=== PATIENT | female | born 1960 | race Caucasian/White ===

== ENCOUNTER 2018-03-16 18:25 | Emergency (ER) | payer BC ==
[~2018-03-16] VITALS: Ht 167.6 cm; Wt 96.6 kg
[~2018-03-16 18:25] MED LIST: ALBU90OI INH; ALBU90OI6; AMOCLA875 PO; AMOX500 PO; ASPI325 PO; ASPI81CH PO; ATOR40TA PO; AZIT250 PO; CALCAVITDA PO; CIPRO500 MG PO; CLOP75 PO; CODGUAEL PO; CYCL10 PO; Cheratussin AC118 ML PO; DIAZ5 PO; DULO60; DULO60 PO; FLUO20; FLUT220OIA INH; GABA300 PO; GLIP10; GLIP5 PO; HYDACE10B; HYDGUAL120 PO; LEVFLO500 PO; LIRA0.6P; LISI10; LORA1 PO; METF500 PO; METF500C; METPRE4DP PO; MULVITMINF PO; OMEP20ER PO; PIOG15; PIOG30 PO; POTASSIUM GLUC500 MG PO; PRAV20 PO; PRED20 PO; Prozac20 MG PO; Pyridium200 MG PO; SPACE CHAMBER1 EACH MC; VITNEPH PO
[2018-03-16 19:44] LABS: BASOPHILS ABSOLUTE AUTO 0.07 K/mm3 (0.00-0.23); BASOPHILS PERCENT AUTO 1 % (0-2); EOSINOPHILS ABSOLUTE AUTO 0.27 K/mm3 (0.00-0.68); EOSINOPHILS PERCENT AUTO 3 % (0-6); Hematocrit 38.7 % (33.0-51.0); Hemoglobin 13.3 g/dL (11.5-16.0); IMMATURE GRAN ABSOLUTE AUTO 0.03 K/mm3 (0.00-0.10); IMMATURE GRAN PERCENT AUTO 0 % (0-1); LYMPHOCYTES ABSOLUTE AUTO 2.57 K/mm3 (0.84-5.20); LYMPHOCYTES PERCENT AUTO 27 % (21-46); MONOCYTES ABSOLUTE AUTO 0.78 K/mm3 (0.16-1.47); MONOCYTES PERCENT AUTO 8 % (4-13); Mean Corpuscular HGB 28.9 pg (26.0-34.0); Mean Corpuscular HGB Conc 34.4 g/dL (31.5-36.5); Mean Corpuscular Volume 84 fL (80-100); Mean Platelet Volume 11.4 fL (9.1-12.4); NEUTROPHILS ABSOLUTE AUTO 5.67 K/mm3 (1.96-9.15); NEUTROPHILS PERCENT AUTO 60 % (41-73); Platelet Count 251 K/mm3 (150-400); RDW Coefficient Variation 12.5 % (11.7-14.2); White Blood Cell Count 9.39 K/mm3 (4.00-11.30)
[2018-03-16 19:45] LABS: Source, Urine Clean Catch
[2018-03-16 19:58] LABS: Appearance, Urine Clear (Clear); Bilirubin, Urine Neg (Neg); Blood, Urine 2+ (Neg); Color, Urine Yellow (P-Yellow); Glucose Qualitative, Urine 4+ (Neg); Ketones, Urine Neg (Neg); Leukocyte Esterase, Urine 3+ (Neg); Nitrite, Urine Neg (Neg); Protein, Urine 3+ (Neg); Specific Gravity, Urine 1.015 (1.003-1.022); Urobilinogen, Urine NORM (Normal)
[2018-03-16 20:03] LABS: Alanine Aminotransfer (ALT/SGP 19 U/L (12-78); Albumin/Globulin Ratio 0.8 (0.8-1.8); Alk Phos 91 U/L (50-136); Anion Gap 10 mmol/L (6-16); Aspartate Aminotrans (AST/SGOT 15 U/L (12-37); Bilirubin, Total 0.2 mg/dL (0.1-1.0); Blood Urea Nitrogen 21 mg/dL (8-24); CO2, Blood 25 mmol/L (21-32); Calcium, Blood 8.7 mg/dL (8.5-10.1); Chloride, Blood 95 mmol/L (98-108); Creatinine, Blood 0.72 mg/dL (0.40-1.00); Globulin, Blood 3.9 g/dL (2.2-4.0); Glomerular Filtration Rate >60 (60-); Glucose, Blood 473 mg/dL (70-99); Potassium, Blood 4.1 mmol/L (3.5-5.5); Sodium, Blood 130 mmol/L (136-145); Total Protein, Blood 6.9 g/dL (6.4-8.2)
[2018-03-16 20:06] LABS: Bacteria Few /hpf; Red Blood Cells, Urine 0-2 /hpf (0-2); Squamous Epithelial Cells Mod /hpf (Few)
[2018-03-17] MEDS ORDERED: METF500C PO (01:59)
[2018-03-17] MEDS ORDERED: Bactrim Ds Tab1 EACH PO (01:59)
[2018-03-17] MEDS ORDERED: CEPH500 PO (01:59)
== END 2018-03-17 02:52 | disposition home or self-care (01) ==
LOC: ER 18:25
PROVIDERS: Emergency Medicine
DX: L02.214 Cutaneous abscess of groin (principal); E11.65 Type 2 diabetes mellitus with hyperglycemia; E72.51 Non-ketotic hyperglycinemia; Z91.018 Allergy to other foods; Z79.899 Other long term (current) drug therapy
CPT/HCPCS: 10060; 36415; 80053; 81001; 82947; 85025; 87070; 87075; 87077; 87086; 87147; 87186; 87205; 96365; 96366; 99283-25; J1815; J3370; J7030; J7050

== ENCOUNTER → 2018-10-14 | Outpatient (CLI) | payer BC ==
[~2018-10-14] MED LIST changes: +Bactrim Ds Tab1 EACH PO; +CEPH500 PO; +METF500C PO
[2018-10-14 12:32] LABS: BASOPHILS ABSOLUTE AUTO 0.06 K/mm3 (0.00-0.23); BASOPHILS PERCENT AUTO 1 % (0-2); EOSINOPHILS ABSOLUTE AUTO 0.14 K/mm3 (0.00-0.68); EOSINOPHILS PERCENT AUTO 3 % (0-6); Hematocrit 39.4 % (33.0-51.0); Hemoglobin 12.8 g/dL (11.5-16.0); IMMATURE GRAN ABSOLUTE AUTO 0.02 K/mm3 (0.00-0.10); IMMATURE GRAN PERCENT AUTO 0 % (0-1); LYMPHOCYTES ABSOLUTE AUTO 1.19 K/mm3 (0.84-5.20); LYMPHOCYTES PERCENT AUTO 23 % (21-46); MONOCYTES ABSOLUTE AUTO 0.61 K/mm3 (0.16-1.47); MONOCYTES PERCENT AUTO 12 % (4-13); Mean Corpuscular HGB 28.3 pg (26.0-34.0); Mean Corpuscular HGB Conc 32.5 g/dL (31.5-36.5); Mean Corpuscular Volume 87 fL (80-100); Mean Platelet Volume 11.1 fL (9.1-12.4); NEUTROPHILS ABSOLUTE AUTO 3.26 K/mm3 (1.96-9.15); NEUTROPHILS PERCENT AUTO 62 % (41-73); Platelet Count 266 K/mm3 (150-400); RDW Standard Deviation 40.9 fL (35.1-46.3); Red Blood Cell Count 4.53 M/mm3 (3.80-5.20); White Blood Cell Count 5.28 K/mm3 (4.00-11.30)
[2018-10-14 12:45] LABS: Alanine Aminotransfer (ALT/SGP 25 U/L (12-78); Albumin/Globulin Ratio 0.8 (0.8-1.8); Alk Phos 67 U/L (50-136); Anion Gap 6 mmol/L (6-16); Aspartate Aminotrans (AST/SGOT 18 U/L (12-37); Bilirubin, Total 0.2 mg/dL (0.1-1.0); Blood Urea Nitrogen 13 mg/dL (8-24); Bun/Creatinine Ratio 23.9 (12.0-20.0); CHOL/HDL RATIO 3.1; CO2, Blood 28 mmol/L (21-32); Calcium, Blood 8.4 mg/dL (8.5-10.1); Chloride, Blood 105 mmol/L (98-108); Cholesterol 186 mg/dL (50-200); Creatinine, Blood 0.54 mg/dL (0.40-1.00); Globulin, Blood 3.8 g/dL (2.2-4.0); Glomerular Filtration Rate >60 (60-); Glucose, Blood 85 mg/dL (70-99); HDL Cholesterol 60 mg/dL (>39); LDL/HDL RATIO 1.7; Low Density Lipoprotein Chol 105 mg/dL (0-110); Potassium, Blood 4.2 mmol/L (3.5-5.5); Sodium, Blood 139 mmol/L (136-145); Total Protein, Blood 6.8 g/dL (6.4-8.2); Triglycerides 107 mg/dL (30-160); Very Low Density Lipoprot Chol 21 mg/dL (6-32)
[2018-10-14 15:58] LABS: Creatinine, Urine Random 37.8 mg/dL (27.00-270.00)
[2018-10-14 16:25] LABS: Microalb/Creat Ratio UR, Rand 3068.78 mg/g (0.000-30.000)
== END | disposition home or self-care (01) ==
LOC: LAB 11:59 → LAB SHORT 11:59
PROVIDERS: Nurse Practitioner Family
DX: Z13.29 Encounter for screening for other suspected endocrine disorder (principal); E11.29 Type 2 diabetes mellitus with other diabetic kidney complication
CPT/HCPCS: 80053; 80061; 82043; 82570; 83036; 84443; 85025

== ENCOUNTER 2018-12-08 06:40 | Day surgery (SDC) | payer BC ==
[~2018-12-08] VITALS: Ht 165.1 cm; Wt 93.0 kg
[~2018-12-08 06:40] MED LIST changes: +INSULANPEN SC; +Lisinopril2.5 MG PO; +METFORMIN HCL1000 MG PO
--- NOTE | 2018-12-08 12:00 | NUR ---
PT UP TO THE BATHROOM /C SBA. TOLERATED WELL. -BLEEDING OR SWELLING R GROIN AREA.
--- NOTE | 2018-12-08 12:59 | NUR ---
PT VERBALIZED UNDERSTANDING OF WRITTEN AND VERBAL D/C INST. IV REMOVED. PT TAKEN OUT OF THE HRT CENTER VIA W/C.
== END 2018-12-08 22:50 | disposition home or self-care (01) ==
LOC: MHTC 06:40
DX: I73.9 Peripheral vascular disease, unspecified (principal); E11.9 Type 2 diabetes mellitus without complications; J45.909 Unspecified asthma, uncomplicated; G47.30 Sleep apnea, unspecified; Z79.899 Other long term (current) drug therapy; Z79.4 Long term (current) use of insulin; Z91.018 Allergy to other foods
CPT/HCPCS: 82947; 99152; 99153; C1714; C1760; C1769; C1876; C1884; C1887; C1894; C2623; J1200; J1644; J2250; J2720; J3010; J7030; J7040; J7042; Q9967

== ENCOUNTER 2019-01-13 08:49 | Day surgery (SDC) | payer BC, OTHER ==
[~2019-01-13] VITALS: Ht 165.1 cm; Wt 93.0 kg
[2019-01-13] MEDS ORDERED: CLOP75 PO (09:21)
--- NOTE | 2019-01-13 11:50 | NUR ---
PT RETURN TO RECOVERY, LETHARGIC. SLEEPS IF LEFT UNDISTURBED. NO C/O PAIN OR DISCOMFORT TO GROIN WHEN AWAKENED. LEFT GROIN SITE STABLE. NO BLEEDING OR SWELLING NOTED. NO HEMATOMA PALPATED. LEGS PINK WARM AND DRY.
--- NOTE | 2019-01-13 13:54 | NUR ---
PT HAS HAD UNEVENTFUL POST PROCEDURE COURSE. RESTING IN BED - FLAT. WATCHING TV AT THIS TIME. HAS EATEN AND DRANK WITHOUT NAUSEA OR VOMITING. NO C/O PAIN OR DISCOMFORT. LEFT GROIN SITE REMAINS STABLE AND NO BLEEDING ORSWELLING NOTED. LEGS PINK, WARM, AND DRY. PT HAS NO C/O AT THIS TIME.
--- NOTE | 2019-01-13 14:50 | NUR ---
PT AMBULATED TO BATHROOM AND BACK AT 3 HOUR LAMONT. GROIN REMAINS STABLE. NO BLEEDING OR SWELLING NOTED. NO HEMATOMA. PT STATES SOME ANKLE DISCOMFORT POST PROCEDURE AND "PROBABLY FROM THE IMPROVED BLOOD FLOW." ASSESSMENT REVEALS NO OTHER ISSUES. REVIEWED DISCHARGE INSTRUCTIONS WITH PATIENT WHO VERBALIZES UNDERSTANDING OF ALL INSTRUCTIONS GIVEN.
--- NOTE | 2019-01-13 15:20 | NUR ---
PT IV D/C AT 1500. TIP INTACT. PT DRESSED SELF WITHOUT ASSISTANCE. GROIN REMAINED STABLE AFTER ALL ACTIVITY. PT D/C HOME VIA W/C WITH FRIEND TO DRIVE HER AT 1510
== END 2019-01-13 15:10 | disposition home or self-care (01) ==
LOC: MHTC 08:49
DX: I73.9 Peripheral vascular disease, unspecified (principal)
CPT/HCPCS: 82947; 99152; 99153; C1725; C1760; C1769; C1876; C1887; C1894; C2623; J1644; J2250; J3010; J7030; Q9967

== ENCOUNTER → 2020-07-26 | Outpatient (CLI) | payer BC | LOC: LAB 09:46 | DX: R19.7 Diarrhea, unspecified (principal) | CPT/HCPCS: 87015; 87045; 87046; 87205; 87899 ==

== ENCOUNTER 2024-09-06 16:05 | Emergency (ER) | payer MEDICARE, OTHER ==
[~2024-09-06] VITALS: Ht 167.6 cm; Wt 88.9 kg
[2024-09-06 16:38] LABS: BASOPHILS ABSOLUTE AUTO 0.07 K/mm3 (0.00-0.23); BASOPHILS PERCENT AUTO 1 % (0-2); EOSINOPHILS ABSOLUTE AUTO 0.27 K/mm3 (0.00-0.68); EOSINOPHILS PERCENT AUTO 3 % (0-6); Hematocrit 42.5 % (33.0-51.0); Hemoglobin 14.1 g/dL (11.5-16.0); IMMATURE GRAN ABSOLUTE AUTO 0.02 K/mm3 (0.00-0.10); IMMATURE GRAN PERCENT AUTO 0 % (0-1); LYMPHOCYTES ABSOLUTE AUTO 2.11 K/mm3 (0.84-5.20); LYMPHOCYTES PERCENT AUTO 20 % (21-46); MONOCYTES ABSOLUTE AUTO 0.85 K/mm3 (0.16-1.47); MONOCYTES PERCENT AUTO 8 % (4-13); Mean Corpuscular HGB 29.1 pg (26.0-34.0); Mean Corpuscular HGB Conc 33.2 g/dL (31.5-36.5); Mean Corpuscular Volume 88 fL (80-100); Mean Platelet Volume 11.3 fL (9.1-12.4); NEUTROPHILS ABSOLUTE AUTO 7.34 K/mm3 (1.96-9.15); NEUTROPHILS PERCENT AUTO 69 % (41-73); Platelet Count 286 K/mm3 (150-400); RDW Coefficient Variation 13.6 % (11.7-14.2); RDW Standard Deviation 43.9 fL (35.1-46.3); Red Blood Cell Count 4.85 M/mm3 (3.80-5.20); White Blood Cell Count 10.66 K/mm3 (4.00-11.30)
[2024-09-06 17:04] LABS: Albumin, Blood 3.3 g/dL (3.4-5.0); Albumin/Globulin Ratio 0.7 (0.8-1.8); Bilirubin, Total 0.3 mg/dL (0.1-1.0); Bun/Creatinine Ratio 37.9 (12.0-20.0); Calcium, Blood 9.6 mg/dL (8.5-10.1); Creatinine, Blood 0.87 mg/dL (0.40-1.00); Globulin, Blood 4.8 g/dL (2.2-4.0); Potassium, Blood 4.7 mmol/L (3.5-5.5); Total Protein, Blood 8.1 g/dL (6.4-8.2)
[2024-09-06] MEDS ORDERED: FUROSEMIDE40 MG PO (19:17)
[2024-09-06] MEDS ORDERED: PROZAC2010 PO (19:17)
[2024-09-06] MEDS ORDERED: Robaxin750 MG PO (19:17)
[2024-09-06] MEDS ORDERED: LEVE500 PO (19:19)
[2024-09-06] MEDS ORDERED: METOPROLOL TART25 MG PO (19:19)
[2024-09-06] MEDS ORDERED: B-COMPLEX WITH1 EAC2 PO (19:20)
[2024-09-06] MEDS ORDERED: B COMPLEX-VITA1 EACH PO (19:21)
[2024-09-06] MEDS ORDERED: MELA3 PO (19:21)
[2024-09-06] MEDS ORDERED: BASAGLAR K100 UNIT/3 SC (19:22)
[2024-09-06] MEDS ORDERED: Potassium Chlo20 ME1 PO (19:23)
[2024-09-06] MEDS ORDERED: INSULIN AS100 UNIT/8 SC (19:23)
[2024-09-06 19:30] VITALS: BP 146/78
[2024-09-06] MEDS ORDERED: Morphine Sulfate 4 MG/1 ML Injection IV ONE ×2 (20:10→21:50)
[2024-09-06] MEDS ORDERED: ACET500 PO (22:23)
[2024-09-06] MEDS ORDERED: DOXY100 PO (22:23)
== END 2024-09-06 22:45 | disposition home or self-care (01) ==
LOC: ER 16:05
PROVIDERS: Student in an Organized Health Care Education/Training Program
DX: I73.9 Peripheral vascular disease, unspecified (principal); I77.1 Stricture of artery; F17.210 Nicotine dependence, cigarettes, uncomplicated; E11.9 Type 2 diabetes mellitus without complications; J44.9 Chronic obstructive pulmonary disease, unspecified; Z79.4 Long term (current) use of insulin; Z79.82 Long term (current) use of aspirin; Z91.018 Allergy to other foods
CPT/HCPCS: 80053; 83605; 85025; 93926; 96374; 96376; 99284-25; J2270

== ENCOUNTER 2024-09-07 19:18 | Inpatient (IN) | payer MEDICARE, OTHER ==
[~2024-09-07] VITALS: Ht 165.1 cm; Wt 89.5 kg
[~2024-09-07 19:18] MED LIST changes: +ACET500 PO; +B COMPLEX-VITA1 EACH PO; +B-COMPLEX WITH1 EAC2 PO; +BASAGLAR K100 UNIT/3 SC; +DOXY100 PO; +FUROSEMIDE40 MG PO; +INSULIN AS100 UNIT/8 SC; +LEVE500 PO; +MELA3 PO; +METOPROLOL TART25 MG PO; +PROZAC2010 PO; +Potassium Chlo20 ME1 PO; +Robaxin750 MG PO
[2024-09-07 20:18] LABS: BASOPHILS ABSOLUTE AUTO 0.08 K/mm3 (0.00-0.23); BASOPHILS PERCENT AUTO 1 % (0-2); EOSINOPHILS ABSOLUTE AUTO 0.22 K/mm3 (0.00-0.68); EOSINOPHILS PERCENT AUTO 2 % (0-6); Hematocrit 41.4 % (33.0-51.0); Hemoglobin 13.5 g/dL (11.5-16.0); IMMATURE GRAN ABSOLUTE AUTO 0.04 K/mm3 (0.00-0.10); IMMATURE GRAN PERCENT AUTO 0 % (0-1); LYMPHOCYTES ABSOLUTE AUTO 2.13 K/mm3 (0.84-5.20); LYMPHOCYTES PERCENT AUTO 19 % (21-46); MONOCYTES ABSOLUTE AUTO 1.04 K/mm3 (0.16-1.47); MONOCYTES PERCENT AUTO 9 % (4-13); Mean Corpuscular HGB 28.8 pg (26.0-34.0); Mean Corpuscular HGB Conc 32.6 g/dL (31.5-36.5); Mean Corpuscular Volume 88 fL (80-100); Mean Platelet Volume 10.9 fL (9.1-12.4); NEUTROPHILS ABSOLUTE AUTO 7.61 K/mm3 (1.96-9.15); NEUTROPHILS PERCENT AUTO 68 % (41-73); Platelet Count 305 K/mm3 (150-400); RDW Coefficient Variation 13.5 % (11.7-14.2); RDW Standard Deviation 43.7 fL (35.1-46.3); Red Blood Cell Count 4.69 M/mm3 (3.80-5.20); White Blood Cell Count 11.12 K/mm3 (4.00-11.30)
[2024-09-07 20:33] LABS: Albumin, Blood 3.2 g/dL (3.4-5.0); Albumin/Globulin Ratio 0.7 (0.8-1.8); Bilirubin, Total 0.3 mg/dL (0.1-1.0); Bun/Creatinine Ratio 30.9 (12.0-20.0); Calcium, Blood 9.4 mg/dL (8.5-10.1); Creatinine, Blood 1.1 mg/dL (0.40-1.00); Globulin, Blood 4.7 g/dL (2.2-4.0); Potassium, Blood 5.1 mmol/L (3.5-5.5); Total Protein, Blood 7.9 g/dL (6.4-8.2)
[2024-09-07] MEDS ORDERED: FentaNYL Citrate 50 MCG/ML 2 ML Injection IV ONE (22:25)
[2024-09-07] MEDS ORDERED: FLU VACC TS2024-25(6MOS UP)/PF 45 MCG/0.5 ML SYRINGE IM ONE (23:10)
[2024-09-07] MEDS ORDERED: Naloxone HCl 0.4MG / ML 1ML Vial IV PRN (23:15)
[2024-09-07] MEDS ORDERED: FentaNYL Citrate 50 MCG/ML 2 ML Injection IV PRN (23:15)
[2024-09-07] MEDS ORDERED: Acetaminophen 325 MG TABLET PO PRN (23:20)
[2024-09-07] MEDS ORDERED: Melatonin 3 MG Tab PO PRN (23:20)
[2024-09-07] MEDS ORDERED: Methocarbamol 500 MG Tab PO PRN (23:25)
[2024-09-07 23:48] LABS: Anti-Xa UFH, PHA Monitoring <0.10 IU/mL; International Normalized Ratio 0.95; Prothrombin Time Results 10.2 Sec (9.7-11.5)
[2024-09-08] VITALS (27 sets, daily range): BP systolic 105–179; BP diastolic 45–104
[2024-09-08] MEDS ORDERED: Lactated Ringer's 1,000 ML IV SCH
[2024-09-08] MEDS ORDERED: Heparin Sodium,Porcine/0.5 NS 500 ML IV SCH (00:50)
--- NOTE | 2024-09-08 02:30 | NUR ---
NEW ADMIT. PATIENT ADMITTED TO ROOM 337 FROM THE ER. PATIENT ARRIVED TO ROOM VIA GURNEY AND 1 PERSON TRANSPORT. PATIENT ARRIVED IN STREET CLOTHES WITH HEPARIN DRIP RUNNING. PATIENT ABLE TO TRANSFER OVER TO HOSPITAL BED FROM [facility] BY [facility]. PATIENT ARRIVED TO ROOM WITH HER PERSONAL PURSE. PATIENT ORIENTED TO ROOM. THIS RN TO ASSUME CARE OF PATIENT.
--- NOTE | 2024-09-08 04:04 | NUR ---
SHIFT SUMMARY. PATIENT IS A&OX4. PATIENT IS WHEELCHAIR AT BASELINE. PATIENT CALLS APPROPRIATELY AND IS ABLE TO MAKE HER NEEDS KNOWN. PAITNET IS NPO FOR ANGIOPLASTY TO BE DONE 09/08/23, IR TO CONSULT THIS MORNING. PATIENT HAS SCABS TO LLE WITH REDNESS AND 2-3RD DIGITS ARE DISCOLORED PURPLE. PATIENT HAS NO TEETH-HAS DENTURES BUT IS NOT WEARING THEM D/T THEM BEING BROKEN AT THIS TIME. BED IS LOCKED IN THE LOWEST POSITION WTIH CALL LIGHT IN REACH. CARE IS ONGOING.
[2024-09-08 08:16] LABS: BASOPHILS ABSOLUTE AUTO 0.05 K/mm3 (0.00-0.23); BASOPHILS PERCENT AUTO 1 % (0-2); EOSINOPHILS ABSOLUTE AUTO 0.21 K/mm3 (0.00-0.68); EOSINOPHILS PERCENT AUTO 2 % (0-6); Hematocrit 37.6 % (33.0-51.0); Hemoglobin 12.5 g/dL (11.5-16.0); IMMATURE GRAN ABSOLUTE AUTO 0.05 K/mm3 (0.00-0.10); IMMATURE GRAN PERCENT AUTO 1 % (0-1); LYMPHOCYTES ABSOLUTE AUTO 1.64 K/mm3 (0.84-5.20); LYMPHOCYTES PERCENT AUTO 17 % (21-46); MONOCYTES ABSOLUTE AUTO 0.82 K/mm3 (0.16-1.47); MONOCYTES PERCENT AUTO 8 % (4-13); Mean Corpuscular HGB 28.9 pg (26.0-34.0); Mean Corpuscular HGB Conc 33.2 g/dL (31.5-36.5); Mean Corpuscular Volume 87 fL (80-100); Mean Platelet Volume 11.1 fL (9.1-12.4); NEUTROPHILS ABSOLUTE AUTO 6.98 K/mm3 (1.96-9.15); NEUTROPHILS PERCENT AUTO 72 % (41-73); Platelet Count 281 K/mm3 (150-400); RDW Coefficient Variation 13.4 % (11.7-14.2); Red Blood Cell Count 4.32 M/mm3 (3.80-5.20); White Blood Cell Count 9.75 K/mm3 (4.00-11.30)
[2024-09-08 08:28] LABS: Albumin, Blood 2.9 g/dL (3.4-5.0); Albumin/Globulin Ratio 0.7 (0.8-1.8); Bilirubin, Total 0.3 mg/dL (0.1-1.0); Bun/Creatinine Ratio 33.2 (12.0-20.0); Calcium, Blood 9.1 mg/dL (8.5-10.1); Creatinine, Blood 0.93 mg/dL (0.40-1.00); Globulin, Blood 4.3 g/dL (2.2-4.0); Magnesium, Blood 2.3 mg/dL (1.6-2.4); Potassium, Blood 4.2 mmol/L (3.5-5.5); Total Protein, Blood 7.2 g/dL (6.4-8.2)
[2024-09-08] MEDS ORDERED: Furosemide 40 MG Tab PO SCH (09:00)
[2024-09-08] MEDS ORDERED: Atorvastatin 40 MG Tab PO SCH (09:00)
[2024-09-08] MEDS ORDERED: LevETIRAcetam 500 MG Tab PO SCH (09:00)
[2024-09-08] MEDS ORDERED: Aspirin 81 MG Chew PO SCH (09:00)
[2024-09-08] MEDS ORDERED: Metoprolol Tartrate 25 MG Tab PO SCH (09:00)
[2024-09-08] MEDS ORDERED: FLUoxetine HCL 20 MG CAP PO SCH (09:00)
[2024-09-08] MEDS ORDERED: Lisinopril 10 MG Tab PO SCH (09:00)
[2024-09-08] MEDS ORDERED: Potassium Chloride 20 MEQ TabCR PO SCH (09:00)
[2024-09-08] MEDS ORDERED: Dose Adjust by Pharmacy XX STA (09:56)
[2024-09-08] MEDS ORDERED: NS 250 ML IV ONE (10:17)
[2024-09-08] MEDS ORDERED: Heparin Sodium 1000 Units/ML 10ML MDV ONE ×2 (10:17→10:23)
[2024-09-08] MEDS ORDERED: NS 1,000 ML IV ONE ×2 (10:17→10:23)
[2024-09-08] MEDS ORDERED: NS 100 ML IV ONE ×2 (10:17→12:43)
[2024-09-08] MEDS ORDERED: Midazolam HCl 1MG / ML 2ML Vial ONE ×2 (10:22→12:20)
[2024-09-08] MEDS ORDERED: FentaNYL Citrate 50 MCG/ML 2 ML Injection ONE ×2 (10:23→12:20)
[2024-09-08] MEDS ORDERED: Ketorolac Tromethamine 30mg Vial ONE (12:17)
[2024-09-08] MEDS ORDERED: HydrALAZINE HCl 20 MG / ML 1ML Vial ONE (12:51)
[2024-09-08] MEDS ORDERED: Labetalol HCL 5 MG/ML 4ML Injection (Single Dose) ONE (13:00)
--- NOTE | 2024-09-08 13:14 | NUR ---
RN NOTE MS BERG WAS ON MEDICAL FLOOR THIS AM, WENT ON STRETCHER TO [facility] AT 1045AM. OX4. LEFT FOOT DARK RED, PURPLE TOES, SCABS ON FOOT AND DARK AREA BETWEEN TOES. L FOOT PAINFUL, FENTANYL HELPED TO TAKE THE EDGE OFF. PEDAL PULSE AUDABLE WITH DOPPLAR. HEPARIN GTT INFUSING AT 18U/KG/HR AND LR AT 75CC/HR PRIOR TO TRANSFER.
--- NOTE | 2024-09-08 14:26 | NUR ---
RIGHT FEMORAL GROIN SITE SOFT NON-TENDER WITH NO HEMATOMA, NO PULSATILE BLEEDING AND INTACT DRESSING WITH SLIGHT TRACK OOZING. LEFT DP MONOPHASIC DOPPLER PULSE. CALL LIGHT IN REACH.
--- NOTE | 2024-09-08 14:52 | NUR ---
REPORT TO DIRECTOR TELEVISION NEWS. PT WENT TO PCU POST COPYING MACHINE REPAIRER.
[2024-09-08] MEDS ORDERED: TraMADol HCl 50 MG Tab PO PRN (17:50)
--- NOTE | 2024-09-08 18:53 | NUR ---
ASSUMPTION OF CARE PT FROM RETAIL BANKING MANAGER @ APPROX 1435, GROIN SITE SOFT AND NON-TENDER, SMALL AMOUNT OF OOZING UNDER DRESSING, SITE OBSERVED WITH RETAIL BANKING MANAGER RN. VSS. PT EDUCATED MULTIPLE TIMES TO LAY FLAT/PT CONTINUES TO MOVE IN BED-LIFING HEAD-RAISING L/R LEG. REPORT RECEIVED FROM MEDICAL FLOOR RN SHORTLY AFTER PT ARRIVAL TO PCU AND DAUGHTER BROUGHT DOWN PT BELONGINGS, DAUGHTER STAYING IN ROOM REMINDING PT TO LAY FLAT. PT LETHARGIC BUT EASILY WAKES TO VERBAL STIMULI, ORIENTEDX4, ABLE TO MAKE NEEDS KNOWN, OBEYS COMMANDS/FORGETFUL AT TIMES, RIGHT BKA, BASELINE PT DAUGHTER STATES THAT PT IS ABLE TO STAND PIVOT TO WHEEL CHAIR AND PREFORM ADLS IND HOWEVER SINCE THE LEFT FOOT HAS HAD INCREASING PAIN PT HAS NOT BE ABLE TO CARE FOR SELF. CONTINUOUS SPO2, SPO2 GREATER THAN 90% ON RA, LUNGS SOUND CLEAR T/O WITH DIMINISHED BASES. CONTINUOUS TELE MONITORING , SINUS RHYTHM- SINUS OLGA 50 S-70 S, HEART MURMUR HEARD, CAP REFIL TO HANDS LESS THAN 3 SECONDS/CAP REFIL TO LEFT FOOT GREATER THAN 3 SECONDS, PT DENIES CHEST P/P, BP STABLE WITH MAP GREATER THAN 65, STRONG BUE PULSES/FAINT LLE PULSE. PUREWICK IN PLACE DUE TO PT BEING ON STRICKED BEDREST FROM PROCEDURE, PT ABLE TO TELL STAFF SHE NEEDED TO VOID. BOWEL TONES PRESENT IN ALL 4Q, PT LLE RED. LEFT FOOT DUSKY WITH 4TH TOE BLUE IN COLOR. DR. EVANS AND DR. NASH TO BEDSIDE, ORDERS TO RESTART HEPARIN AND PAIN MANAGEMENT DISCUSSED.
[2024-09-08] MEDS ORDERED: Insulin Glargine-Yfgn 100 Unit/mL 3 ML SYR SC SCH (21:00)
--- NOTE | 2024-09-08 21:42 | NUR ---
ASSUMPTION OF CARE THIS RN ASSUMED CARE OF PATIENT AT 1900. PT A&O X4. ABLE TO MAKE NEEDS KNOWN. BP STABLE. SR ON TELE. ON RA WITH SPO2 >92%. RT FEMORAL ACCESS SITE FOR REVASC IS SOFT/NONTENDER, BUT NOTED TO HAVE OOZING OF BLOOD UNDER DRESSING. MD WAS MADE AWARE ON HIFT AND IS NOT CONCERNED AT THIS TIME. NO HEMATOMA PRESENT. RESTARTED ON HEP GTT PER MD ORDER. FAINT PEDAL PULSES FELT, MARKED FOR DOPPLER. DAYSHIFT RN'S [place]/RONI NOTED IMPROVED PINK COLOR TO LEFT 3RD/4TH TOES DURING BEDSIDE SHIFT REPORT. PUREWICK IN PLACE. PT MEDICATED PER EMAR FOR BACK PAIN. PT ABLE TO REPOSITION SELF IN BED. BED IN LOWEST POSITION AND CALL LIGHT WITHIN REACH.
[2024-09-09 00:10] VITALS: BP 151/62
[2024-09-09] MEDS ORDERED: Clarify Drug Order XX ONE ×2 (00:35→06:25)
[2024-09-09 03:59] VITALS: BP 136/53
--- NOTE | 2024-09-09 05:26 | NUR ---
SHIFT SUMMARY SEE PREVIOUS NOTE. NEURO INTACT. PT CALLING APPROPRIATELY. REPOSITIONING SELF IN BED. PT PLACED ON 2L VIA NC WHILE SLEEPING D/T HX LUIS AND DESATTING TO 70-80'S WHILE SLEEPING. PT DENIED WANTING CPAP AT THIS TIME. WEARS ONE AT HOME. CHANGED DRESSING ON RT FEMORAL ACCESS SITE FROM REVASC. NO CHANGES TO LLE. VERY FAINT PULSE PALPABLE, MARKED FOR DOPPLER. OTHER VSS. PUREWICK IN PLACE. BED IN LOWEST POSITION AND CALL LIGHT WITHIN REACH. THIS RN WILL REPORT TO ONCOMING DAYSHIFT RN.
[2024-09-09 05:36] LABS: BASOPHILS ABSOLUTE AUTO 0.07 K/mm3 (0.00-0.23); BASOPHILS PERCENT AUTO 1 % (0-2); EOSINOPHILS ABSOLUTE AUTO 0.12 K/mm3 (0.00-0.68); EOSINOPHILS PERCENT AUTO 1 % (0-6); Hematocrit 35.1 % (33.0-51.0); Hemoglobin 11.8 g/dL (11.5-16.0); IMMATURE GRAN ABSOLUTE AUTO 0.03 K/mm3 (0.00-0.10); IMMATURE GRAN PERCENT AUTO 0 % (0-1); LYMPHOCYTES ABSOLUTE AUTO 1.35 K/mm3 (0.84-5.20); LYMPHOCYTES PERCENT AUTO 12 % (21-46); MONOCYTES ABSOLUTE AUTO 0.98 K/mm3 (0.16-1.47); MONOCYTES PERCENT AUTO 9 % (4-13); Mean Corpuscular HGB 29.4 pg (26.0-34.0); Mean Corpuscular HGB Conc 33.6 g/dL (31.5-36.5); Mean Corpuscular Volume 88 fL (80-100); Mean Platelet Volume 10.8 fL (9.1-12.4); NEUTROPHILS ABSOLUTE AUTO 8.64 K/mm3 (1.96-9.15); NEUTROPHILS PERCENT AUTO 77 % (41-73); Platelet Count 243 K/mm3 (150-400); RDW Coefficient Variation 13.6 % (11.7-14.2); Red Blood Cell Count 4.01 M/mm3 (3.80-5.20); White Blood Cell Count 11.19 K/mm3 (4.00-11.30)
[2024-09-09 06:16] LABS: Bun/Creatinine Ratio 26.1 (12.0-20.0); Calcium, Blood 8.7 mg/dL (8.5-10.1); Creatinine, Blood 1.34 mg/dL (0.40-1.00); Potassium, Blood 4.5 mmol/L (3.5-5.5)
[2024-09-09 07:58] VITALS: BP 148/70
--- NOTE | 2024-09-09 09:13 | NUR ---
DR RANKIN, JOSSELIN RN AND HOSSEIN RN, BALWINDER, TO BEDSIDE. PROVIDED EDUCATION REGARDING FLUID INTAKE AND SODIUM BALANCE. PATIENT BECAME CRYING AND HID HER FACE IN HER HANDS. EXPRESSED FEELING LIKE SHE WAS BEING TOLD IT WAS HER FAULT. DIFFICULT TO CONSOLE, STATING, "I APPRECIATE WHERE YOU'RE COMING FROM, AND I RESPECT YOU, BUT I DON'T WANT ANOTHER DOCTOR IN THIS ROOM BECAUSE THEY'RE ALWAYS COMING IN HERE TELLING ME SOMETHING DIFFERENT AND TELLING ME HOW EVERYTHING IS MY FAULT." PATIENT LEFT WITH HOSSEIN BRITT RN TO DISCUSS HER DESIRE TO GO TO [facility] RE[facility].
[2024-09-09] MEDS ORDERED: Apixaban 5 MG Tab PO SCH (10:56)
[2024-09-09 12:32] VITALS: BP 128/45
[2024-09-09] MEDS ORDERED: Bisacodyl 10 MG Supp PR PRN (15:50)
[2024-09-09] MEDS ORDERED: Magnesium Hydroxide Conc 10 ML UDC PO PRN (15:55)
--- NOTE | 2024-09-09 16:45 | NUR ---
TRANSFER/SHIFT SUMMARY: A&Ox4. PLEASANT AND COOPERATIVE WITH CARE. CALLS APPROPRIATELY AND IS ABLE TO ADVOCATE NEEDS EFFECTIVELY. CONTINENT OF BOWEL AND BLADDER; PUREWICK SECONDARY TO LIMITED AMBULATION R/T POD#1. NO BM x3 DAYS; ORDERS FOR STOOL SOFTENERS OBTAINED. STAND/PIVOT TO BSC. MEDS WHOLE WITH FLUIDS. SOME C/O AND MEDICATED FOR PAIN TODAY IN LLE x2. ELIQUIS ADMINISTERED AND HEP GTTs STOPPED TWO HOURS LATER. PT/OT EVAL COMPLETED. DAUGHTER IN TO VISIT TODAY; ON PHONE WITH SON WHO TELLS SISTER, "DON'T LET THEM TAKE HER OTHER FOOT IF THEY DON T HAVE TO." EDUCATION PROVIDED REGARDING ONLY AMPUTATING IF MEDICALLY NECESSARY. SCAN DONE DUE TO NO OUTPUT AND YIELDED 800mL, RELIEVED WITH TRANSFER TO BSC. KELSI Samuels. TRANSPORTED TO MEDICAL FLOOR VIA BED @ 1640 AFTER REPORT TO DANIEL AVERY RN WITH ALL BELONGINGS, ACCOMPANIED BY DAUGHTER.
--- NOTE | 2024-09-09 16:48 | NUR ---
TRANSFER NOTE: PT TRANSFERRED FROM PCU, REPORT RECEIVED FROM AR SMITH. DAUGHTER AT THE BS. PT ORIENTED TO THE ROOM. CALL LIGHT GIVEN TO THE PT. NO COMPLAINTS AT THIS TIME.
--- NOTE | 2024-09-09 18:35 | NUR ---
SHIFT SUMMARY PT AOX4, STAND-PIVOT TO THE BSC. NO COMPLAINTS SINCE THE TRANSFER. PT CALLS AND MAKES HER NEEDS KNOWN. DAUGHTER AT THE BS DURING THE TRANSFER, NUMBER IS ON THE BOARD. NO EVENTS PER TELE. PT REPOSITIONS SELF IN BED. CALL LIGHT WITHIN REACH, BED LOCKED AND IN THE LOWEST POSITION. WILL REPORT TO ONCOMING NURSE.
[2024-09-09] MEDS ORDERED: Docusate Sodium 100 MG Cap PO SCH (21:00)
[2024-09-09] MEDS ORDERED: Sennosides 8.6 MG Tab PO SCH (21:00)
[2024-09-09 21:07] VITALS: BP 123/39
[2024-09-10 05:16] LABS: BASOPHILS ABSOLUTE AUTO 0.09 K/mm3 (0.00-0.23); BASOPHILS PERCENT AUTO 1 % (0-2); EOSINOPHILS PERCENT AUTO 3 % (0-6); Hemoglobin 11.6 g/dL (11.5-16.0); IMMATURE GRAN ABSOLUTE AUTO 0.03 K/mm3 (0.00-0.10); IMMATURE GRAN PERCENT AUTO 0 % (0-1); LYMPHOCYTES ABSOLUTE AUTO 1.73 K/mm3 (0.84-5.20); LYMPHOCYTES PERCENT AUTO 16 % (21-46); MONOCYTES ABSOLUTE AUTO 0.97 K/mm3 (0.16-1.47); MONOCYTES PERCENT AUTO 9 % (4-13); Mean Corpuscular HGB 28.9 pg (26.0-34.0); Mean Corpuscular HGB Conc 32.2 g/dL (31.5-36.5); Mean Corpuscular Volume 90 fL (80-100); Mean Platelet Volume 10.6 fL (9.1-12.4); NEUTROPHILS ABSOLUTE AUTO 7.46 K/mm3 (1.96-9.15); NEUTROPHILS PERCENT AUTO 70 % (41-73); Platelet Count 232 K/mm3 (150-400); RDW Coefficient Variation 13.5 % (11.7-14.2); RDW Standard Deviation 44.4 fL (35.1-46.3); Red Blood Cell Count 4.02 M/mm3 (3.80-5.20); White Blood Cell Count 10.58 K/mm3 (4.00-11.30)
[2024-09-10 05:37] LABS: Bun/Creatinine Ratio 18.3 (12.0-20.0); Calcium, Blood 8.5 mg/dL (8.5-10.1); Creatinine, Blood 2.29 mg/dL (0.40-1.00); Potassium, Blood 4.7 mmol/L (3.5-5.5)
[2024-09-10 07:47] VITALS: BP 138/45
[2024-09-10] MEDS ORDERED: NS 1,000 ML IV SCH (09:45)
[2024-09-10 16:36] VITALS: BP 146/64
--- NOTE | 2024-09-10 17:26 | NUR ---
SHIFT NOTE: PT A/OX4 ABLE TO MAKE HER NEEDS KNONW. SHE IS RA WITH NO REPORTS OF SOB. SHE IS ON TELE IN NSR WITH NO EVENTS THIS SHIFT. SHE CONTINUES TO ENDORSE PAIN IN HER LEFT LOWER EXTRIMITY. PT HAS BEEN MEDICATED PER MAR BUT STATES SHE CONTIUES TO HAVE PAIN. SHE IS UP TO THE BSC WITH 1P ASSIST. CARE CONTINUES
[2024-09-10 20:16] VITALS: BP 175/59
[2024-09-11 03:23] VITALS: BP 172/57
--- NOTE | 2024-09-11 05:02 | NUR ---
SHIFT SUMMARY: Pt is admitted for Peripheral arterial disease and is a full code. Is alert and able to make needs known. ADLs have been 1p. Pain has been managed with PRn medication. Jaskaran reports sinus in the 60s.
[2024-09-11 05:43] LABS: Bun/Creatinine Ratio 22.6 (12.0-20.0); Calcium, Blood 8.2 mg/dL (8.5-10.1); Creatinine, Blood 1.86 mg/dL (0.40-1.00)
[2024-09-11 07:07] VITALS: BP 150/50
[2024-09-11 15:18] VITALS: BP 171/59
--- NOTE | 2024-09-11 16:08 | NUR ---
SHIFT SUMMARY: PATIENT HAS HAD NO NEW ACUTE CHANGES THIS SHIFT. PATIENT MEDICATED FOR PAIN TO L FOOT PER EMAR c MOD EFFECT. DR. SAWYER (MARINE MECHANIC) CAME IN FOR CONSULT, DISCUSSED c PATIENT PLAN OF CARE. PATIENT VERBALIZED UNDERSTANDING AND NO FURTHER QUESTIONS. PATIENT STILL ON TELE, SR HR IN THE MID 60'S-70'S BPM. PATIENT DENIES CP/PRESSURE, SOB, N/V AND DIZZINESS. PATIENT CONTIN/INCON OF BOWEL/BLADDER, ATTENDS PLACED AND CHANGED PRN. PATIENT HAD LARGE BM THIS SHIFT. PATIENT RECEIVED BEDBATH/LINEN CHANGED. VITAL SIGNS REVIEWED. CALL LIGHT IN REACH.
[2024-09-11 16:15] VITALS: BP 187/65
[2024-09-11 16:30] VITALS: BP 165/60
[2024-09-11 19:38] VITALS: BP 170/50
[2024-09-12 04:29] VITALS: BP 176/53
[2024-09-12 07:34] LABS: Bun/Creatinine Ratio 25.2 (12.0-20.0); Calcium, Blood 8.4 mg/dL (8.5-10.1); Creatinine, Blood 0.95 mg/dL (0.40-1.00); Potassium, Blood 4.4 mmol/L (3.5-5.5)
[2024-09-12 08:04] VITALS: BP 177/63
[2024-09-12] MEDS ORDERED: AmLODIPine Besylate 5 MG Tab PO SCH (10:00)
[2024-09-12 11:09] VITALS: BP 181/58
[2024-09-12] MEDS ORDERED: HydrALAZINE HCl 20 MG / ML 1ML Vial IV PRN (13:35)
[2024-09-12 13:39] VITALS: BP 144/56
[2024-09-12] MEDS ORDERED: ELIQUIS5 M2 PO (14:05)
[2024-09-12] MEDS ORDERED: TRAM50 PO (14:05)
--- NOTE | 2024-09-12 16:28 | NUR ---
SHIFT SUMMARY: PATIENT HAS HAD NO NEW CHANGES THIS SHIFT. PATIENT L FOOT REDNESS WARD NURSE, NO DRAINAIGE NOTED, MEDICATED FOR PAIN PER EMAR c MOD EFFECT. PATIENT HYPERTENSIVE, RECEIVED SCHEDULED BP MEDS PER EMAR c GOOD EFFECT. PATIENT HAS HAD NO EVENTS ON TELE, SB/SR HR RANGE IN THE HIGH 50'S TO MID 70'S BPM. PATIENT CONT/INCON OF BOWEL/BLADDER, USES BSC USING SLIDER BOARD FOR TRANSFER c 2 MAX ASSIST. VITAL SIGNS REVIEWED. PIV DC'D. PATIENT DISCHARGE HOME. DISCHARGE INSTRUCTIONS PACKET GIVEN TO PATIENT. PATIENT EDUCATED ON ADMITTING DX'S OF PAD, S/S, TX, NEW RX, AND TO F/U c BEAD CUTTER, DEPARTMENT OF NATURAL RESOURCES OFFICER AND PCP. PATIENT VERBALIZED UNDERSTANDING AND NO FURTHER QUESTIONS. RX WAS FAXED TO PATIENT PREFERRED [facility]. ALL PERSONAL BELONGINGS WERE SENT c THE PATIENT. PATIENT LEFT THE ROOM AT 1455 TRANSPORTED VIA WHEELCHAIR BY VICE PRINCIPAL TO PATIENT ENTRANCE.
== END 2024-09-12 14:55 | disposition home or self-care (01) | DRG 271 ==
LOC: ER 19:18 → ERHOLD 19:19 → MEDS 19:19 → PCU 19:19 → MEDS 09-08 02:21 → PCU 09-08 14:32 → MEDS 09-09 16:36 → PCU 09-09 16:36 → MEDS 09-12 14:55
PROVIDERS: Family Medicine; Student in an Organized Health Care Education/Training Program; ADMIT Student in an Organized Health Care Education/Training Program
PROC: 047N3Z1 Dilation of Left Popliteal Artery using Drug-Coated Balloon, Percutaneous Approach (ICD-10-PCS; principal; 2024-09-08)
PROC: 04CN3ZZ Extirpation of Matter from Left Popliteal Artery, Percutaneous Approach (ICD-10-PCS; 2024-09-08)
PROC: 04FN3ZZ Fragmentation of Left Popliteal Artery, Percutaneous Approach (ICD-10-PCS; 2024-09-08)
PROC: B44GZZ3 Ultrasonography of Left Lower Extremity Arteries, Intravascular (ICD-10-PCS; 2024-09-08)
PROC: B4101ZZ Fluoroscopy of Abdominal Aorta using Low Osmolar Contrast (ICD-10-PCS; 2024-09-08)
PROC: B41G1ZZ Fluoroscopy of Left Lower Extremity Arteries using Low Osmolar Contrast (ICD-10-PCS; 2024-09-08)
DX: T82.856A Stenosis of peripheral vascular stent, initial encounter (principal); N17.9 Acute kidney failure, unspecified; E11.51 Type 2 diabetes mellitus with diabetic peripheral angiopathy without gangrene; I70.222 Atherosclerosis of native arteries of extremities with rest pain, left leg; M06.9 Rheumatoid arthritis, unspecified; J44.9 Chronic obstructive pulmonary disease, unspecified; N18.9 Chronic kidney disease, unspecified; Y71.2 Prosthetic and other implants, materials and accessory cardiovascular devices associated with adverse incidents; F17.210 Nicotine dependence, cigarettes, uncomplicated; E11.22 Type 2 diabetes mellitus with diabetic chronic kidney disease; I12.9 Hypertensive chronic kidney disease with stage 1 through stage 4 chronic kidney disease, or unspecified chronic kidney disease; Z89.511 Acquired absence of right leg below knee; Z79.82 Long term (current) use of aspirin; Z79.4 Long term (current) use of insulin
CPT/HCPCS: 36415; 37252; 75625; 75635; 75716; 75774; 76937; 80048; 80053; 82947; 83735; 85025; 85347; 85520; 85610; 85730; 96374; 96375; 96376; 97162; 99152; 99153; 99284-25; A9270; C1725; C1753; C1760; C1769; C1885; C1887; C2623; C9766; G0378; J0360; J1644; J1815; J1885; J2250; J3010; J7030; J7050; J7120; Q9967

== ENCOUNTER 2024-10-11 19:36 | Emergency (ER) | payer MEDICARE, OTHER ==
[~2024-10-11] VITALS: Ht 142.2 cm; Wt 77.1 kg
[~2024-10-11 19:36] MED LIST changes: +ELIQUIS5 M2 PO; +TRAM50 PO
[2024-10-11] MEDS ORDERED: Ondansetron HCl 2 MG / ML 2ML Vial IV PRN (20:20)
[2024-10-11 20:23] LABS: BASOPHILS ABSOLUTE AUTO 0.08 K/mm3 (0.00-0.23); BASOPHILS PERCENT AUTO 1 % (0-2); EOSINOPHILS ABSOLUTE AUTO 0.08 K/mm3 (0.00-0.68); EOSINOPHILS PERCENT AUTO 1 % (0-6); Hematocrit 31.8 % (33.0-51.0); Hemoglobin 10.5 g/dL (11.5-16.0); IMMATURE GRAN ABSOLUTE AUTO 0.05 K/mm3 (0.00-0.10); IMMATURE GRAN PERCENT AUTO 0 % (0-1); LYMPHOCYTES ABSOLUTE AUTO 1.35 K/mm3 (0.84-5.20); LYMPHOCYTES PERCENT AUTO 11 % (21-46); MONOCYTES ABSOLUTE AUTO 1.37 K/mm3 (0.16-1.47); MONOCYTES PERCENT AUTO 11 % (4-13); Mean Corpuscular HGB 28.5 pg (26.0-34.0); Mean Corpuscular Volume 86 fL (80-100); Mean Platelet Volume 10.3 fL (9.1-12.4); NEUTROPHILS ABSOLUTE AUTO 9.15 K/mm3 (1.96-9.15); NEUTROPHILS PERCENT AUTO 76 % (41-73); Platelet Count 428 K/mm3 (150-400); RDW Coefficient Variation 13.2 % (11.7-14.2); Red Blood Cell Count 3.68 M/mm3 (3.80-5.20); White Blood Cell Count 12.08 K/mm3 (4.00-11.30)
[2024-10-11 20:37] LABS: Albumin, Blood 3.1 g/dL (3.4-5.0); Albumin/Globulin Ratio 0.6 (0.8-1.8); Bilirubin, Total 0.4 mg/dL (0.1-1.0); Bun/Creatinine Ratio 36.1 (12.0-20.0); Calcium, Blood 9.6 mg/dL (8.5-10.1); Creatinine, Blood 1.44 mg/dL (0.40-1.00); Globulin, Blood 5.4 g/dL (2.2-4.0); Potassium, Blood 4.9 mmol/L (3.5-5.5); Total Protein, Blood 8.5 g/dL (6.4-8.2)
[2024-10-11] MEDS ORDERED: Ketorolac Tromethamine 15mg Vial IV ONE (21:00)
[2024-10-11 21:30] VITALS: BP 164/50
[2024-10-11 21:57] LABS: CORONAVIRUS COVID-19 AG Negative (NEGATIVE); INFLUENZA A AG Negative (NEGATIVE); INFLUENZA B AG Negative (NEGATIVE)
[2024-10-11] MEDS ORDERED: SULTRIDS PO (22:04)
== END 2024-10-11 22:57 | disposition home or self-care (01) ==
LOC: ER 19:36
PROVIDERS: Student in an Organized Health Care Education/Training Program
DX: S81.802A Unspecified open wound, left lower leg, initial encounter (principal); J06.9 Acute upper respiratory infection, unspecified; R50.9 Fever, unspecified; X58.XXXA Exposure to other specified factors, initial encounter; E11.8 Type 2 diabetes mellitus with unspecified complications; F17.210 Nicotine dependence, cigarettes, uncomplicated; Z91.018 Allergy to other foods; Z79.899 Other long term (current) drug therapy; Z79.891 Long term (current) use of opiate analgesic; Z79.02 Long term (current) use of antithrombotics/antiplatelets; Z51.81 Encounter for therapeutic drug level monitoring; Z79.811 Long term (current) use of aromatase inhibitors
CPT/HCPCS: 80053; 83605; 85025; 87428-QW; 96374; 99283-25; J1885

== ENCOUNTER 2024-10-14 14:25 | Emergency (ER) | payer MEDICARE, OTHER ==
[~2024-10-14] VITALS: Ht 165.1 cm; Wt 84.4 kg
[~2024-10-14 14:25] MED LIST changes: +SULTRIDS PO
[2024-10-14] MEDS ORDERED: OxyCODONE HCL 5 MG TAB PO ONE (15:00)
[2024-10-14 16:45] VITALS: BP 113/67
== END 2024-10-14 16:46 | disposition home or self-care (01) ==
LOC: ER 14:25
DX: Z47.81 Encounter for orthopedic aftercare following surgical amputation (principal); Z89.512 Acquired absence of left leg below knee; E11.9 Type 2 diabetes mellitus without complications; J44.9 Chronic obstructive pulmonary disease, unspecified; F17.210 Nicotine dependence, cigarettes, uncomplicated; Z79.4 Long term (current) use of insulin; Z79.899 Other long term (current) drug therapy; Z91.018 Allergy to other foods
CPT/HCPCS: 99283; A9270

== ENCOUNTER 2024-12-10 18:59 | Inpatient (IN) | payer MEDICARE, OTHER ==
[~2024-12-10] VITALS: Ht 165.1 cm; Wt 73.5 kg
[2024-12-10 19:27] LABS: BASOPHILS ABSOLUTE AUTO 0.05 K/mm3 (0.00-0.23); BASOPHILS PERCENT AUTO 1 % (0-2); EOSINOPHILS ABSOLUTE AUTO 0.34 K/mm3 (0.00-0.68); EOSINOPHILS PERCENT AUTO 4 % (0-6); Hematocrit 32.7 % (33.0-51.0); Hemoglobin 10.6 g/dL (11.5-16.0); IMMATURE GRAN ABSOLUTE AUTO 0.03 K/mm3 (0.00-0.10); IMMATURE GRAN PERCENT AUTO 0 % (0-1); LYMPHOCYTES ABSOLUTE AUTO 1.77 K/mm3 (0.84-5.20); LYMPHOCYTES PERCENT AUTO 23 % (21-46); MONOCYTES ABSOLUTE AUTO 0.71 K/mm3 (0.16-1.47); MONOCYTES PERCENT AUTO 9 % (4-13); Mean Corpuscular HGB 27.7 pg (26.0-34.0); Mean Corpuscular HGB Conc 32.4 g/dL (31.5-36.5); Mean Corpuscular Volume 86 fL (80-100); Mean Platelet Volume 10.6 fL (9.1-12.4); NEUTROPHILS ABSOLUTE AUTO 4.75 K/mm3 (1.96-9.15); NEUTROPHILS PERCENT AUTO 62 % (41-73); Platelet Count 275 K/mm3 (150-400); RDW Standard Deviation 44.1 fL (35.1-46.3); Red Blood Cell Count 3.82 M/mm3 (3.80-5.20); White Blood Cell Count 7.65 K/mm3 (4.00-11.30)
[2024-12-10 19:47] LABS: Albumin, Blood 2.8 g/dL (3.4-5.0); Albumin/Globulin Ratio 0.6 (0.8-1.8); Bilirubin, Total 0.4 mg/dL (0.1-1.0); Bun/Creatinine Ratio 43.4 (12.0-20.0); Calcium, Blood 8.3 mg/dL (8.5-10.1); Creatinine, Blood 0.99 mg/dL (0.40-1.00); Globulin, Blood 4.4 g/dL (2.2-4.0); Potassium, Blood 5.3 mmol/L (3.5-5.5); Total Protein, Blood 7.2 g/dL (6.4-8.2)
[2024-12-10 19:58] LABS: International Normalized Ratio 0.96; Prothrombin Time Results 10.3 Sec (9.7-11.5)
[2024-12-10] MEDS ORDERED: NS 1,000 ML IV SCH (22:35)
[2024-12-10] MEDS ORDERED: Ondansetron HCl 2 MG / ML 2ML Vial IV PRN (22:40)
[2024-12-10] MEDS ORDERED: PROZAC2010 PO (22:45)
[2024-12-10] MEDS ORDERED: TAMS.4ER PO (22:48)
[2024-12-10] MEDS ORDERED: FAMO20 PO (22:49)
[2024-12-10] MEDS ORDERED: GABA300 PO (22:50)
[2024-12-10] MEDS ORDERED: Methocarbamol750 MG PO (22:51)
[2024-12-10] MEDS ORDERED: Robaxin750 MG PO (22:52)
[2024-12-10] MEDS ORDERED: OXYC10TA19 PO (22:53)
[2024-12-10] MEDS ORDERED: Enoxaparin 40 MG/0.4 ML SYR SC SCH (23:00)
[2024-12-10] MEDS ORDERED: Atorvastatin 40 MG Tab PO SCH (23:00)
[2024-12-10] MEDS ORDERED: Aspirin 81 MG Chew PO SCH (23:00)
[2024-12-10] MEDS ORDERED: Clopidogrel Bisulfate 75 MG Tab PO SCH (23:00)
[2024-12-10] MEDS ORDERED: Acetaminophen650 M1 PO (23:01)
[2024-12-10] MEDS ORDERED: ELIQUIS2.5 MG PO (23:11)
[2024-12-10] MEDS ORDERED: CLOP75 PO (23:46)
[2024-12-10 23:59] VITALS: BP 152/56
[2024-12-11] MEDS ORDERED: Melatonin 3 MG Tab PO SCH (01:10)
[2024-12-11] MEDS ORDERED: Insulin Glargine-Yfgn 100 Unit/mL 3 ML SYR SC SCH (01:10)
[2024-12-11] MEDS ORDERED: Methocarbamol 500 MG Tab PO SCH (01:10)
--- NOTE | 2024-12-11 01:44 | NUR ---
HOSPITALIST CALLED FOR AN ORDER FOR PTS' MEDS TO HELP HER SLEEP AND HER LANTUS. SEE JOSER. HOSPITALIST ALSO WANTED PT TO HAVE CPAP ORDER AND DAUGHTER TOOK PT'S PURSE AND WALLET WITH HER SO SHE DOES NOT LOSE IT
--- NOTE | 2024-12-11 04:02 | NUR ---
SHIFT SUMM: PT IS A 64 YO FULL CODE ADMITTED FOR POSSIBLE CVA AND STROKE LIKE SYMPTOMS FROM THE ER AT 2350 12/10/24. PT IS INCONT TO BOWEL AND URINE AND HAS A PURE WICK IN PLACE. PT HAS NO SKIN ISSUES BUT SOME MILD REDNESS IN COCCYX AREA. PT IS ON TELE WITH NSR IN THE 60'S. PT HAS A STAIGHT CAT ORDER IN PLACE FOR HIST OF RETENTION IF NEEDED. PT IS A DOUBLE BKA.PT IS CURRENTLY ON 75ML/HR OF NS AND WAS GIVEN BEDTIME MEDICATIONS AND MEDS TO HELP HER SLEEP (SEE EMAR).PT WAS NOT GIVEN INSULIN COVERAGE THIS SHIFT BECAUSE BS WAS ONLY IN 150'S. PT HAS AN MRI/ECHO ORDERED FOR TODAY AND THE MRI QUESTION FORM HAS BEEN FAXED TO IMAGING. PT HAS TAKEN MEDS WHOLE W/APPLESAUCE AND HAS BEEN TOLERATING IT WELL BUT DOES STILL HAVE SOME R SIDED FACIAL DROOP AND SOME SLURRED SPEECH WELL. PT DID HAVE A BM 12/10/24 AND A HIST OF CONSTIPATION. PT IS RA DURING THE DAY BUT USES A CPAP AT NIGHT TIME. PT HAS CALL LIGHT IN REACH AND BED ALARM SET FOR SAFETY.
[2024-12-11 04:18] VITALS: BP 119/58
[2024-12-11 05:06] LABS: BASOPHILS ABSOLUTE AUTO 0.07 K/mm3 (0.00-0.23); BASOPHILS PERCENT AUTO 1 % (0-2); EOSINOPHILS ABSOLUTE AUTO 0.33 K/mm3 (0.00-0.68); EOSINOPHILS PERCENT AUTO 6 % (0-6); Hematocrit 29.5 % (33.0-51.0); Hemoglobin 9.5 g/dL (11.5-16.0); IMMATURE GRAN ABSOLUTE AUTO 0.01 K/mm3 (0.00-0.10); IMMATURE GRAN PERCENT AUTO 0 % (0-1); LYMPHOCYTES PERCENT AUTO 34 % (21-46); MONOCYTES ABSOLUTE AUTO 0.61 K/mm3 (0.16-1.47); MONOCYTES PERCENT AUTO 10 % (4-13); Mean Corpuscular HGB 27.5 pg (26.0-34.0); Mean Corpuscular HGB Conc 32.2 g/dL (31.5-36.5); Mean Corpuscular Volume 85 fL (80-100); Mean Platelet Volume 10.3 fL (9.1-12.4); NEUTROPHILS ABSOLUTE AUTO 2.89 K/mm3 (1.96-9.15); NEUTROPHILS PERCENT AUTO 49 % (41-73); Platelet Count 266 K/mm3 (150-400); RDW Coefficient Variation 14.2 % (11.7-14.2); RDW Standard Deviation 44.6 fL (35.1-46.3); Red Blood Cell Count 3.46 M/mm3 (3.80-5.20); White Blood Cell Count 5.91 K/mm3 (4.00-11.30)
[2024-12-11 05:27] LABS: Albumin, Blood 2.7 g/dL (3.4-5.0); Albumin/Globulin Ratio 0.6 (0.8-1.8); Bilirubin, Total 0.2 mg/dL (0.1-1.0); Bun/Creatinine Ratio 40.4 (12.0-20.0); Calcium, Blood 8.4 mg/dL (8.5-10.1); Creatinine, Blood 1.04 mg/dL (0.40-1.00); Globulin, Blood 4.2 g/dL (2.2-4.0); Potassium, Blood 5.1 mmol/L (3.5-5.5); Total Protein, Blood 6.9 g/dL (6.4-8.2)
[2024-12-11 07:55] VITALS: BP 143/52
[2024-12-11] MEDS ORDERED: LevETIRAcetam 500 MG Tab PO SCH (09:00)
--- NOTE | 2024-12-11 11:46 | NUR ---
NOTE MRI HAD QUESTIONS ON SCREENING FORM, SENT ANOTHER FORM, ATTEMPTED TO CALL SON SAMY NEXT OF KIN DUE TO PT BEING POOR HISTORIAN. LEFT VOICEMAIL.
[2024-12-11 11:53] VITALS: BP 154/61
--- NOTE | 2024-12-11 18:17 | NUR ---
SHIFT SUMMARY PT A&OX4, IS POOR HISTORIAN AND FORGETFUL. PT ADMITTED DUE TO STROKE LIKE SYMPTOMS, HAS R SIDE FACIAL DROOP. NO ACUTE WORSENING STROKE LIKE SYMPTOMS THROUGH SHIFT. SPEECH THERAPY CAME TO DO EVAL TODAY. PT UPRIGHT 90 DEGREES FOR PO INTAKE. PT ON TELE. PT ON ROOM AIR. CONT PULSE OX IN PLACE. SPO2 IS 97%. PT REPORTS NO SOB OR CHEST PAIN. PT ON BEDREST DUE TO PT HAVING BLE AMPUTATION, USES WHEELCHAIR AT BASE. SON DID NOT RETURN CALL, CALLED DAUGHTER FOR MRI QUESTIONS. PT HAD MRI TODAY. PT Q2 TURNED. PT RECEIVED BAG OF FLUIDS TODAY. PT INC. OF URINE AND BM. ATTENDS IN PLACE, CHANGED PRN. PT HAD ORDERS FOR SEVILLA DUE TO ACUTE RETENTION, INDWELLING SEVILLA IN PLACE. SEVILLA DRAINING WITH NO DEPENDENT LOOPS. VSS. PT IN BED, BED IN LOWEST POSITION, CALL LIGHT IN REACH. ECHO COMPLETE.
[2024-12-11 20:28] VITALS: BP 183/63
--- NOTE | 2024-12-11 20:56 | NUR ---
CALLED HOSPITALIST TO LET THE THE DOCTOR KNOW ABOUT PT'S BP OF 183/63 AND IF HE WANTED THE PT TO RECIEVE ANY HTN MEDICATION. HOSPITALIST WAS OKAY WITH BP AND GAVE PERMISSION TO ALLOW PERMISSIVE HYPERTENSION. THE DOCTOR SAID TO CALL BACK IF SBP IS 200 OR GREATER. PT IS NOT SYMPTOMATIC WITH HER BP AND OTHER VITALS ARE WNL.
[2024-12-12 00:12] VITALS: BP 166/71
[2024-12-12 02:17] VITALS: BP 150/72
--- NOTE | 2024-12-12 03:37 | NUR ---
SHIFT SUMM: PT HAS BEEN RELAXING THIS SHIFT AND SLEEPING WITH CPAP ON AND ON CONTINUOUS PULSE OX IN THE HIGH 90'S.PT IS ON TELE WITH NSR IN THE 70'S. PT WAS ABLE TO TOLERATE PILLS WWW THIS SHFT AND DAUGHTER CALLED TO CHECK IN ON PT AND RECIEVE AN UPDATE. PT HAS HAD 2 LOOSE STOOLS THIS SHIFT AND IS INCONT TO BOWEL AND URINE AND HAS A SEVILLA FOR RETENTION. PT HAS COPIOUS AMOUNTS OF THICK WHITE SEDIMENT IN SEVILLA TUBE. PT HAS BEEN EMOTIONAL AND TEARFUL THIS SHIFT AND IS HAVING A HARD TIME EXPLAINING HERSELF. PT CALLS TO MAKE NEEDS KNOWN AND HAS CALL LIGHT IN REACH AND BED ALARM SET FOR SAFETY.
[2024-12-12 06:00] LABS: Source, Urine Foley catheter
[2024-12-12 06:03] LABS: Appearance, Urine Cloudy (Clear); Bilirubin, Urine Neg (Neg); Blood, Urine 5+ (Neg); Color, Urine Yellow (P-Yellow); Glucose Qualitative, Urine Neg (Neg); Ketones, Urine Neg (Neg); Leukocyte Esterase, Urine 3+ (Neg); Nitrite, Urine Pos (Neg); Protein, Urine 3+ (Neg); Specific Gravity, Urine 1.015 (1.003-1.022); Urobilinogen, Urine NORM (Normal)
[2024-12-12 06:15] LABS: Bacteria Many /hpf; Red Blood Cells, Urine 50-100 /hpf (0-2); Squamous Epithelial Cells Few /hpf (Few); White Blood Cells, Urine 50-100 /hpf (0-5)
[2024-12-12] MEDS ORDERED: NS 1,000 ML IV SCH (06:20)
[2024-12-12 07:19] LABS: BASOPHILS ABSOLUTE AUTO 0.05 K/mm3 (0.00-0.23); BASOPHILS PERCENT AUTO 1 % (0-2); EOSINOPHILS ABSOLUTE AUTO 0.26 K/mm3 (0.00-0.68); EOSINOPHILS PERCENT AUTO 6 % (0-6); Hematocrit 31.6 % (33.0-51.0); Hemoglobin 10.3 g/dL (11.5-16.0); IMMATURE GRAN PERCENT AUTO 0 % (0-1); LYMPHOCYTES ABSOLUTE AUTO 1.56 K/mm3 (0.84-5.20); LYMPHOCYTES PERCENT AUTO 35 % (21-46); MONOCYTES ABSOLUTE AUTO 0.53 K/mm3 (0.16-1.47); MONOCYTES PERCENT AUTO 12 % (4-13); Mean Corpuscular HGB 27.6 pg (26.0-34.0); Mean Corpuscular HGB Conc 32.6 g/dL (31.5-36.5); Mean Corpuscular Volume 85 fL (80-100); Mean Platelet Volume 9.9 fL (9.1-12.4); NEUTROPHILS ABSOLUTE AUTO 2.04 K/mm3 (1.96-9.15); NEUTROPHILS PERCENT AUTO 46 % (41-73); Platelet Count 287 K/mm3 (150-400); RDW Coefficient Variation 14.1 % (11.7-14.2); RDW Standard Deviation 44.2 fL (35.1-46.3); Red Blood Cell Count 3.73 M/mm3 (3.80-5.20); White Blood Cell Count 4.44 K/mm3 (4.00-11.30)
[2024-12-12 07:39] LABS: Bun/Creatinine Ratio 36.1 (12.0-20.0); Calcium, Blood 8.7 mg/dL (8.5-10.1); Creatinine, Blood 0.66 mg/dL (0.40-1.00); Potassium, Blood 4.7 mmol/L (3.5-5.5)
--- NOTE | 2024-12-12 07:52 | NUR ---
NOTE CALLED DR. ESCALANTE, MRI RESULTS BACK. REPORTED TO BORIS ABOUT NEW RECTAL TUBE. HE REPORTED WILL ORDER IMMODIUM FOR LOOSE STOOL IF TEST IS NEG FOR CDIFF. REPORTED PT HAVING ANXIETY, AND IS EMOTIONAL. REPORTED UTI RESULTS CAME BACK AND MAY NEED ANTIBIOTICS.
[2024-12-12 07:53] LABS: Adenovirus F 40/41 Not Detected (NOT DETECT); Astrovirus Not Detected (NOT DETECT); Campylobacter Sp Not Detected (NOT DETECT); Cryptosporidium Not Detected (NOT DETECT); Cyclospora Cayetanensis Not Detected (NOT DETECT); E. Coli O157 Not Detected (NOT DETECT); Entamoeba Histolytica Not Detected (NOT DETECT); Enteroaggregative E. coli-EAEC Not Detected (NOT DETECT); Enteropathogenic E. coli-EPEC Not Detected (NOT DETECT); Enterotoxigenic E. coli-ETEC Not Detected (NOT DETECT); Giardia Lamblia Not Detected (NOT DETECT); Norovirus GI/GII Not Detected (NOT DETECT); Plesiomonas Shigelloides Not Detected (NOT DETECT); Rotavirus A Not Detected (NOT DETECT); Salmonella Sp Not Detected (NOT DETECT); Sapovirus Not Detected (NOT DETECT); Shiga Toxin-prod E. coli-STEC Not Detected (NOT DETECT); Shigella/Enteroin E. coli-EIEC Not Detected (NOT DETECT); Vibrio Cholerae Not Detected (NOT DETECT); Vibrio Sp Not Detected (NOT DETECT); Yersinia Enterocolitica Not Detected (NOT DETECT)
[2024-12-12 07:54] VITALS: BP 156/67
[2024-12-12 11:57] VITALS: BP 169/62
[2024-12-12] MEDS ORDERED: Vancomycin HCl 125 MG Cap PO SCH (13:00)
[2024-12-12 14:43] VITALS: BP 161/75
[2024-12-12] MEDS ORDERED: Lisinopril 10 MG Tab PO SCH (15:00)
[2024-12-12] MEDS ORDERED: Metoprolol Tartrate 25 MG Tab PO SCH (15:00)
[2024-12-12 16:13] LABS: CHOL/HDL RATIO 2.3; Cholesterol 136 mg/dL (50-200); HDL Cholesterol 60 mg/dL (>39); Low Density Lipoprotein Chol 57 mg/dL (0-110); Triglycerides 93 mg/dL (30-160); Very Low Density Lipoprot Chol 18 mg/dL (6-32)
--- NOTE | 2024-12-12 17:44 | NUR ---
SHIFT SUMMARY PT A&OX4. PT IN CONTACT/ENTERIC PRECAUTIONS DUE TO C-DIFF POS TEST. PT ADMITTED DUE TO STROKE. R SIDE FACIAL DROOP STILL PRESENT BUT APPEARS TO BE IMPROVING. PT HAS EQUAL STRENGTH. NO ACUTE WORSENING STROKE LIKE SYMPTOMS THROUGH SHIFT. PT TAKES MEDS WHOLE WITH WATER. PT EATS SELDOM. PT UPRIGHT 90 DEGREES FOR PO INTAE. PT ON TELE. PT ON ROOM AIR. CONT PULSE OX IN PLACE. SPO2 IS 99%. PT REPORTS NO CHEST PAIN OR SOB OR HEADACHE. BLOOD PRESSURE HAS BEEN ELEVATED. REPORTED TO DR. ESCALANTE, BORIS UPDATED ORDERS. PT USES WHEELCHAIR AT BASE. PT WORKED WITH PHYSICAL THERAPY. PHYSICAL THERAPY REPORTED, PT APPEARS TO BE BACK AT BASELINE. PT HAS NS RUNNING AT 75ML/HR. PT HAS RECTAL TUBE, TUBE HAS NO KINKS. PT HAS LOOSE STOOL. PT HAS SEVILLA FOR ACUTE RETENTION. SEVILLA IS DRAINING, AND WITH NO DEPENDENT LOOPS. PT HAS BEEN EMOTIONAL LABILE AT TIMES. PT IN BED, BED IN LOWEST POSITION. CALL LIGHT IN REACH. ORAL VANCO STARTED TODAY.
[2024-12-12 20:15] VITALS: BP 170/66
[2024-12-13 00:30] VITALS: BP 135/59
[2024-12-13 04:58] VITALS: BP 149/53
[2024-12-13 06:09] LABS: BASOPHILS ABSOLUTE AUTO 0.06 K/mm3 (0.00-0.23); BASOPHILS PERCENT AUTO 1 % (0-2); EOSINOPHILS ABSOLUTE AUTO 0.36 K/mm3 (0.00-0.68); EOSINOPHILS PERCENT AUTO 7 % (0-6); Hematocrit 32.9 % (33.0-51.0); Hemoglobin 10.5 g/dL (11.5-16.0); IMMATURE GRAN ABSOLUTE AUTO 0.01 K/mm3 (0.00-0.10); IMMATURE GRAN PERCENT AUTO 0 % (0-1); LYMPHOCYTES ABSOLUTE AUTO 1.73 K/mm3 (0.84-5.20); LYMPHOCYTES PERCENT AUTO 33 % (21-46); MONOCYTES ABSOLUTE AUTO 0.49 K/mm3 (0.16-1.47); MONOCYTES PERCENT AUTO 9 % (4-13); Mean Corpuscular HGB 27.9 pg (26.0-34.0); Mean Corpuscular HGB Conc 31.9 g/dL (31.5-36.5); Mean Corpuscular Volume 88 fL (80-100); Mean Platelet Volume 10.1 fL (9.1-12.4); NEUTROPHILS ABSOLUTE AUTO 2.68 K/mm3 (1.96-9.15); NEUTROPHILS PERCENT AUTO 50 % (41-73); Platelet Count 292 K/mm3 (150-400); RDW Coefficient Variation 14.1 % (11.7-14.2); RDW Standard Deviation 45.3 fL (35.1-46.3); Red Blood Cell Count 3.76 M/mm3 (3.80-5.20); White Blood Cell Count 5.33 K/mm3 (4.00-11.30)
--- NOTE | 2024-12-13 06:11 | NUR ---
SHIFT SUMMARY PATIENT HAS BEEN ALERT AND ORIENTED. PATIENT HAS HAD NO ACUTE EVENTS THIS SHIFT. PATIENT HAS BEEN IN CONTACT ISO FOR C-DIFF. PATIENT HAS HAD MINIMAL STOOL OUTPUT THIS SHIFT. PATIENTS RECTAL TUBE GOT DISLODGED AND PATIENT DID NOT WANT REINSERTED. PATIENT HAS A SEVILLA IS PATENT AND DRAINING TO GRAVITY. PATIENT HAS BEEN WEARING CPAP ALL NIGHT. PATIENT HAS NO COMPLAINTS OF PAIN, NAUSEA, SOB OR VOMITTING THIS SHIFT.
[2024-12-13 06:34] LABS: Bun/Creatinine Ratio 29.9 (12.0-20.0); Calcium, Blood 8.4 mg/dL (8.5-10.1); Creatinine, Blood 0.6 mg/dL (0.40-1.00); Potassium, Blood 4.5 mmol/L (3.5-5.5)
--- NOTE | 2024-12-13 06:41 | NUR ---
NURSE NOTE PATIENT DISLODGED RECTAL TUBE. PATIENT DOES NOT WANT RECTAL TUBE REINSERTED. WILL RELAY THIS TO DAY NURSE
[2024-12-13 07:49] VITALS: BP 147/97
--- NOTE | 2024-12-13 08:48 | NUR ---
Pt laying in bed with eyes closed, wakes easily, said she is ok to remove cpap, on r/a during the day, a/ox3-4 a bit slow to answer, cooperative with care, follows commands well, face is symetrical this am, swallows without diff, lungs are clear in upper c[place]rena dim in bases, resp riki and unlabored, no cough noted, hrr, murmur noted, piv site is clear and patent, infusing ns at 75mls/hr, btx4, hyperactive, briefs in place, incont of stool, medina cath draining clear yellow urine, skin c/w/d, mandeep, b/l le amputesilvia mendez, moves herself around in bed, is wheelchair bound, call light in reach.
[2024-12-13 11:18] VITALS: BP 166/53
--- NOTE | 2024-12-13 14:30 | NUR ---
PT working with pt, no acute changes. call light in reach.
[2024-12-13 15:30] VITALS: BP 163/63
--- NOTE | 2024-12-13 16:01 | NUR ---
left stump had a scant amount of bleeding, placed dressing and stopped fluids per orders.
--- NOTE | 2024-12-13 18:05 | NUR ---
Pt sat up in the chair for a few hrs today, medina cath removed intact, urine is cloudy, she had one loose stool today, no further changes this shift. call light in reach.
[2024-12-13 20:56] VITALS: BP 173/62
[2024-12-13] MEDS ORDERED: Cephalexin Monohydrate 500 MG Cap PO SCH (21:00)
[2024-12-13] MEDS ORDERED: Lactobacil 2-S.Thermo-Bifido 1 1 Cap PO SCH (21:00)
[2024-12-14 00:08] VITALS: BP 153/54
--- NOTE | 2024-12-14 03:39 | NUR ---
VSS, RRR AND UNLABORED, NO DIARRHEA, INCONTINENT AT TIMES PER BASELINE, COMPLIANT WITH CPAP AT NIGHT, NO COMPLAINTS OF CHEST PAIN OR SOB, PO ABX ADMINISTERED, CONTACT PRECAUTIONS MAINTAINED. NO CONCERNS AT THIS TIME, NO COMPLAINT OF PAIN EITHER.
[2024-12-14 05:06] VITALS: BP 159/51
[2024-12-14 07:50] VITALS: BP 144/58
[2024-12-14 12:11] VITALS: BP 132/43
[2024-12-14] MEDS ORDERED: CEPH500 PO (13:23)
[2024-12-14] MEDS ORDERED: VANCOCIN HCL125 MG PO (13:24)
[2024-12-14] MEDS ORDERED: VISBIOME 112.51 EACH PO (13:25)
--- NOTE | 2024-12-14 15:39 | NUR ---
PT DISCHARGED AT [address] [facility] VIA WHEELCHAIR TRANSPORT. REPORT WAS CALLED PRIOR TO TRANSFER. PT AOX4 AND COOPERATIVE OF CARE. PT TRANSFERS WELL USING HER ARMS TO HELP MOVE HERSELF FROM BED TO CHAIR. PACKET WAS GIVEN TO CONSULTING MANAGER. ALL PERSONAL BELONINGS COLLECTED AND SENT WITH PT.
== END 2024-12-14 15:08 | DRG 64 ==
LOC: ER 18:59 → MEDS 19:00 → ERHOLD 19:00 → MEDS 23:50
PROVIDERS: Emergency Medicine; Internal Medicine; ADMIT Internal Medicine
DX: I63.81 Other cerebral infarction due to occlusion or stenosis of small artery (principal); J18.9 Pneumonia, unspecified organism; N39.0 Urinary tract infection, site not specified; A04.72 Enterocolitis due to Clostridium difficile, not specified as recurrent; J44.0 Chronic obstructive pulmonary disease with (acute) lower respiratory infection; E87.1 Hypo-osmolality and hyponatremia; M06.9 Rheumatoid arthritis, unspecified; N18.30 Chronic kidney disease, stage 3 unspecified; F32.A Depression, unspecified; R29.701 NIHSS score 1; R47.1 Dysarthria and anarthria; R29.810 Facial weakness; E11.51 Type 2 diabetes mellitus with diabetic peripheral angiopathy without gangrene; E11.22 Type 2 diabetes mellitus with diabetic chronic kidney disease; E11.65 Type 2 diabetes mellitus with hyperglycemia; I12.9 Hypertensive chronic kidney disease with stage 1 through stage 4 chronic kidney disease, or unspecified chronic kidney disease; D64.9 Anemia, unspecified; R47.81 Slurred speech; Z79.01 Long term (current) use of anticoagulants; Z79.82 Long term (current) use of aspirin; Z86.73 Personal history of transient ischemic attack (TIA), and cerebral infarction without residual deficits; Z79.02 Long term (current) use of antithrombotics/antiplatelets; Z79.4 Long term (current) use of insulin; Z87.891 Personal history of nicotine dependence; Z89.511 Acquired absence of right leg below knee; Z89.612 Acquired absence of left leg above knee
CPT/HCPCS: 36415; 70450; 70496; 70498; 70551; 71045; 80048; 80053; 80061; 81001; 82947; 83036; 83735; 84484; 85025; 85610; 85730; 87077; 87086; 87186; 87324; 87507; 92523; 92610; 93005; 93010; 93306; 94660; 94762; 96372; 97110; 97161; 97165; 97530; 99285-25; A9270; G0378; J1650; J1815; J7030; Q9967